=== PATIENT | female | born 1985 | race Caucasian/White ===

== ENCOUNTER 2020-10-28 05:22 | Inpatient (IN) | payer MEDICAID ==
[~2020-10-28 05:22] MED LIST: Sodium Chloride 0.9% 10 ML Syringe FLUSH PRN
[2020-10-28] MEDS: Lactated Ringers 1,000 ML IV SCH ×3 (05:50→08:45)
[2020-10-28] MEDS ORDERED: Citric Acid/Sodium Citrate Solution 30 ML Cup PO ONE (06:45)
[2020-10-28] MEDS ORDERED: Metoclopramide 10 MG/2 ML SDV IVPUSH ONE (06:45)
[2020-10-28] MEDS ORDERED: Phenylephrine 1% 10 MG/ML SDV ONE (07:14)
[2020-10-28] MEDS ORDERED: ceFAZolin 1 GM Vial ONE (07:14)
[2020-10-28] MEDS ORDERED: Morphine PF 10 MG/10 ML SDV ONE (07:14)
[2020-10-28] MEDS ORDERED: Bupivacaine 0.5% 30 ML SDV ONE (07:15)
[2020-10-28] MEDS ORDERED: Oxytocin 10 Units/1 ML SDV ONE (07:17)
[2020-10-28] MEDS ORDERED: Ketorolac 30 MG/ML SDV ONE (07:17)
[2020-10-28] MEDS ORDERED: ceFAZolin 2 GM in Premix Bag 1 BAG IV ONE (07:30)
[2020-10-28] MEDS ORDERED: Oxytocin/Lactated Ringers 10 UNIT/1,000 ML BAG IV SCH (08:00)
[2020-10-28] MEDS ORDERED: Lactated Ringers 1,000 ML ONE (08:06)
[2020-10-28] MEDS ORDERED: diphenhydrAMINE 50 MG/ML SDV IVPUSH PRN ×2 (08:39→11:18)
--- NOTE | 2020-10-28 08:40 | PCM.POSTAN ---
POST ANESTHESIA ASSESSMENT - MENTAL STATUS Mental Status: Alert, Oriented - VITAL SIGNS Vital Signs: Last Vital Signs Temp 36.6 C 10/28/20 05:36 Pulse 79 10/28/20 05:36 Resp 16 10/28/20 05:36 BP 115/66 10/28/20 05:36 Pulse Ox 98 10/28/20 05:36 - RESPIRATORY Respiratory Status: Respiratory Rate WNL, Airway Patent, O2 Saturation Stable, Supplemental Oxygen - CARDIOVASCULAR CV Status: Pulse Rate WNL, Blood Pressure Stable - GASTROINTESTINAL GI Status: No Symptoms - PAIN Pain Score: 0 - POST OP HYDRATION Hydration Status: Adequate & Stable
--- NOTE | 2020-10-28 08:54 | PCM.OPNOTE ---
- General Post-Op/Procedure Note Date of Surgery/Procedure: 10/28/20 Operative Procedure(s): repeat Findings: Viable male, weight 7#15oz, 9/9 APGARS, adhesions Pre Op Diagnosis: uterine window, prior Post-Op Diagnosis: Same Anesthesia Technique: Spinal Primary Surgeon: Tena Robertson Water Softener Installer: Gail Woods Water Softener Installer: Carina Burrows Pathology: none Fluid Replacement, Intraop: 2,600 Output, Urine Amount: 75 EBL in mLs: 900 Drain/Tube Comments:: hernandez Complications: None Condition: Good Free Text/Narrative:: My the patient was taken to the operating room where spinal anesthesia was dosed to surgical levels without difficulty. The patient was prepped and draped in the usual sterile fashion in the dorsal supine position with a leftward tilt. A Pfannenstiel skin incision was made with the scalpel and carried through to the underlying layer of fascia. The fascia was incised in the midline and extended laterally using Colon scissors. Lisa clamps were used to elevate the superior aspect of the fascial incision, which was elevated, and the underlying rectus muscles were dissected off bluntly and using Colon scissors. Attention was then turned to the inferior aspect of the fascial incision, which in similar fashion was grasped with Lisa clamps, elevated, and the underlying rectus muscles were dissected off bluntly and using the colon. The rectus muscles were dissected in the midline. The peritoneum was entered bluntly; this incision was extended superiorly and inferiorly with good visualization of the bladder. The bladder blade was inserted. The vesicouterine peritoneum was identified and entered sharply using Metzenbaum scissors. This incision was extended laterally and the bladder flap was created digitally. The bladder blade was reinserted. The lower uterine segment was incised in a transverse fashion using the scalpel and with digital traction. Clear fluid was noted. The was subsequently delivered by flexing the head to the incision. Body and shoulders followed without difficulty. The cord was clamped and cut. The was subsequently handed to the awaiting armature rewinder whose presence had been requested.. The placenta was delivered spontaneously intact with a three-vessel cord noted. The uterus was exteriorized and cleared of all clots and debris. The uterine incision was repaired in 2 layers using 0 monocryl. Hemostasis was visualized. Hemostasis was visualized bilaterally. The uterus was returned to the abdomen. The uterine incision was reexamined and it was noted to be hemostatic. The pelvis was copiously irrigated. The fascia was closed with 1 PDS suture, and the skin was closed with 3-0 monocryl. Sponge, lap, and instrument counts were correct x2. The patient was stable at the completion of the procedure and was subsequently transferred to the recovery room in stable condition.
[2020-10-28] MEDS ORDERED: ePHEDrine 50 MG/ML SDV IVPUSH PRN (11:18)
[2020-10-28] MEDS ORDERED: Dextrose 5%-Lactated Ringers 1,000 ML IV SCH (11:18)
[2020-10-28] MEDS ORDERED: Naloxone 0.4 MG/ML SDV IVPUSH PRN (11:18)
[2020-10-28] MEDS: Ibuprofen 600 MG Tab PO PRN (17:34)
[2020-10-28] MEDS: Acetaminophen/oxyCODONE 325-5 MG Tab PO PRN (17:35)
[2020-10-29] MEDS: Acetaminophen/oxyCODONE 325-5 MG Tab PO PRN ×5 (00:41→20:14)
[2020-10-29] MEDS: Ibuprofen 600 MG Tab PO PRN ×4 (00:42→20:11)
[2020-10-29] MEDS: Simethicone 80 MG Tab.Chew PO PRN ×4 (04:56→22:01)
[2020-10-29] MEDS ORDERED: Simethicone 80 MG Tab.Chew PO SCH (06:00)
--- NOTE | 2020-10-29 07:54 | PCM48HPAN ---
Post Anesthesia Note - EVALUATION WITHIN 48HRS OF ANESTHETIC Vital Signs in Normal Range: Yes Patient Participated in Evaluation: Yes Respiratory Function Stable: Yes Airway Patent: Yes Cardiovascular Function Stable: Yes Hydration Status Stable: Yes Pain Control Satisfactory: Yes Nausea and Vomiting Control Satisfactory: Yes Mental Status Recovered: Yes Vital Signs: Last Vital Signs Temp 36.7 C 10/29/20 04:41 Pulse 61 10/29/20 04:41 Resp 14 10/29/20 05:00 BP 105/60 10/29/20 04:41 Pulse Ox 99 10/29/20 05:00 - COMMENTS/OBSERVATIONS Free Text/Narrative:: no anesthesia complications noted
--- NOTE | 2020-10-29 07:55 | PCM.PREANE ---
Preanesthetic Assessment - Procedure Proposed Procedure: - Anesthesia/Transfusion/Family Hx Anesthesia History: Prior Anesthesia Without Reaction Family History of Anesthesia Reaction: No Transfusion History: No Prior Transfusion(s) - Review of Systems General: No Symptoms Pulmonary: No Symptoms Cardiovascular: No Symptoms Gastrointestinal: No Symptoms Neurological: No Symptoms Other: Reports: None - Physical Assessment NPO Status Date: 10/27/20 NPO Status Time: 00:00 Vital Signs: Last Vital Signs Temp 36.7 C 10/29/20 04:41 Pulse 61 10/29/20 04:41 Resp 14 10/29/20 05:00 BP 105/60 10/29/20 04:41 Pulse Ox 99 10/29/20 05:00 Height: 1.68 m Weight: 94.064 kg ASA Class: 2 Mental Status: Alert & Oriented x3 Airway Class: Mallampati = 1 Dentition: Reports: Normal Dentition Thyro-Mental Finger Breadths: 3 Mouth Opening Finger Breadths: 3 ROM/Head Extension: Full Lungs: Clear to Auscultation, Normal Respiratory Effort Cardiovascular: Regular Rate, Regular Rhythm - Lab Values: Laboratory Last Values WBC 7.28 K/mm3 (3.98-10.04) 10/28/20 05:49 RBC 4.06 M/mm3 (3.98-5.22) 10/28/20 05:49 Hgb 11.5 gm/dl (11.2-15.7) 10/28/20 05:49 Hct 36.6 % (34.1-44.9) 10/28/20 05:49 MCV 90.1 fl (79.4-94.8) 10/28/20 05:49 MCH 28.3 pg (25.6-32.2) 10/28/20 05:49 MCHC 31.4 g/dl (32.2-35.5) L 10/28/20 05:49 RDW Std Deviation 46.7 fL (36.4-46.3) H 10/28/20 05:49 Plt Count 248 K/mm3 (182-369) 10/28/20 05:49 MPV 10.2 fl (9.4-12.3) 10/28/20 05:49 Neut % (Auto) 63.6 % (34.0-71.1) 10/28/20 05:49 Lymph % (Auto) 25.1 % (19.3-51.7) 10/28/20 05:49 [place] % (Auto) 8.5 % (4.7-12.5) 10/28/20 05:49 Eos % (Auto) 1.9 (0.7-5.8) 10/28/20 05:49 Baso % (Auto) 0.5 % (0.1-1.2) 10/28/20 05:49 Neut # (Auto) 4.62 K/mm3 (1.56-6.13) 10/28/20 05:49 Lymph # (Auto) 1.83 K/mm3 (1.18-3.74) 10/28/20 05:49 [place] # (Auto) 0.62 K/mm3 (0.24-0.36) H 10/28/20 05:49 Eos # (Auto) 0.14 K/mm3 (0.04-0.36) 10/28/20 05:49 Baso # (Auto) 0.04 K/mm3 (0.01-0.08) 10/28/20 05:49 Hepatitis C Antibody Negative (NEGATIVE) 10/28/20 05:49 SARS-CoV-2 RNA (HENRY) Negative (NEGATIVE) 10/28/20 05:49 Blood Type A POSITIVE 10/28/20 05:49 Gel Antibody Screen Negative 10/28/20 05:49 - Allergies Allergies/Adverse Reactions: Allergies Allergy/AdvReac Type Severity Reaction Status Date / Time chloroquine Allergy Rash Verified 10/27/20 14:00 - Anesthesia Plan Pre-Op Medication Ordered: Antacids - Acknowledgements Anesthesia Type Planned: Spinal Pt an Appropriate Candidate for the Planned Anesthesia: Yes Alternatives and Risks of Anesthesia Discussed w Pt/Guardian: Yes Pt/Guardian Understands and Agrees with Anesthesia Plan: Yes PreAnesthesia Questionnaire Gastrointestinal History: Reports: GERD COUNSEL History: Reports: Other OB/BYN History: C/S x2 (2005,2014) Psychiatric History: Reports: Anxiety, Depression - Infectious Disease History Infectious Disease History: Reports: Chicken Pox - Past Surgical History HEENT Surgical History: Reports: Myringotomy w Tube(s), Tonsillectomy Female Surgical History: Reports: Section - SUBSTANCE USE Tobacco Use Status *Q: Former Tobacco User Tobacco Use Within Last Twelve Months: Cigarettes Second Hand Smoke Exposure: No Recreational Drug Use History: No - HOME MEDS Home Medications: Home Meds Fish Oil/[place]-3 Fatty Acids [Fish Oil 1,000 MG] 1,000 mg PO DAILY 10/27/20 [History] Mv-Mn/Iron/FA/Herbal/Digestive [ One Tablet] 1 tab PO DAILY 10/27/20 [History] - CURRENT (IN HOUSE) MEDS Current Meds: Current Medications Diphenhydramine HCl (Diphenhydramine 50 Mg/Ml Sdv) 25 mg IVPUSH Q6H PRN PRN Reason: Itching or Nausea Docusate Sodium (Docusate Sodium 100 Mg Cap) 100 mg PO BID PRN PRN Reason: Constipation Ephedrine Sulfate (Ephedrine 50 Mg/Ml Sdv) 5 mg IVPUSH SEECOMMENT PRN PRN Reason: Other Ibuprofen (Ibuprofen 600 Mg Tab) 600 mg PO Q6H PRN PRN Reason: mild pain or fever Last Admin: 10/29/20 00:42 Dose: 600 mg Documented by: Naloxone HCl (Naloxone 0.4 Mg/Ml Sdv) 0.1 mg IVPUSH SEECOMMENT PRN PRN Reason: Respiratory Depression Oxycodone/Acetaminophen (Acetaminophen/Oxycodone 325-5 Mg Tab) 1 tab PO Q4H PRN PRN Reason: Pain (moderate 4-6) Last Admin: 10/29/20 00:41 Dose: 1 tab Documented by: Oxycodone/Acetaminophen (Acetaminophen/Oxycodone 325-5 Mg Tab) 2 tab PO Q4H PRN PRN Reason: Pain (severe 7-10) Last Admin: 10/29/20 04:55 Dose: 2 tab Documented by: Simethicone (Simethicone 80 Mg Tab.Chew) 80 mg PO Q6HR PRN PRN Reason: Gas Last Admin: 10/29/20 04:56 Dose: 80 mg Documented by: Discontinued Medications Bupivacaine HCl (Bupivacaine 0.5% 30 Ml Sdv) Confirm Administered Dose 30 ml .ROUTE .STK-MED ONE Stop: 10/28/20 07:16 Last Admin: 10/28/20 08:20 Dose: 20 ml Documented by: Cefazolin Sodium (Cefazolin 1 Gm Vial) Confirm Administered Dose 2 gm .ROUTE .STK-MED ONE Stop: 10/28/20 07:15 Citric Acid/Sodium Citrate (Citric Acid/Sodium Citrate Solution 30 Ml Cup) 30 ml PO ONETIME ONE Stop: 10/28/20 06:46 Last Admin: 10/28/20 06:52 Dose: 30 ml Documented by: Diphenhydramine HCl (Diphenhydramine 50 Mg/Ml Sdv) 25 mg IVPUSH Q6H PRN PRN Reason: Itching Cefazolin Sodium/Dextrose 2 gm (/ Premix) 50 mls @ 100 mls/hr IV ONETIME ONE Stop: 10/28/20 07:59 Last Admin: 10/28/20 19:54 Dose: Not Given Documented by: Oxytocin/Lactated Ringer's (Pitocin In Lr 10 Units/1,000 Ml) 10 unit in 1,000 mls @ 100 mls/hr IV ASDIRECTED [facility] Lactated Ringer's (Ringers, Lactated) 1,000 mls @ 125 mls/hr IV ASDIRECTED [facility] Last Admin: 10/28/20 08:45 Dose: 999 mls/hr Documented by: Lactated Ringer's (Ringers, Lactated) Confirm Administered Dose 1,000 mls @ as directed .ROUTE .STK-MED ONE Stop: 10/28/20 08:07 Dextrose/Lactated Ringer's (Dextrose 5%-Lactated Ringers) 1,000 mls @ 125 mls/hr IV ASDIRECTED [facility] Stop: 10/28/20 19:17 Last Admin: 10/28/20 11:42 Dose: 125 mls/hr Documented by: Ketorolac Tromethamine (Ketorolac 30 Mg/Ml Sdv) Confirm Administered Dose 30 mg .ROUTE .STK-MED ONE Stop: 10/28/20 07:18 Metoclopramide HCl (Metoclopramide 10 Mg/2 Ml Sdv) 10 mg IVPUSH ONETIME ONE Stop: 10/28/20 06:46 Last Admin: 10/28/20 06:52 Dose: 10 mg Documented by: Morphine Sulfate (Morphine Pf 10 Mg/10 Ml Sdv) Confirm Administered Dose 10 mg .ROUTE .STK-MED ONE Stop: 10/28/20 07:15 Oxytocin (Oxytocin 10 Units/1 Ml Sdv) Confirm Administered Dose 10 unit .ROUTE .STK-MED ONE Stop: 10/28/20 07:18 Phenylephrine HCl (Phenylephrine 1% 10 Mg/Ml Sdv) Confirm Administered Dose 10 mg .ROUTE .STK-MED ONE Stop: 10/28/20 07:15 Simethicone (Simethicone 80 Mg Tab.Chew) 80 mg PO Q6HR JACQUES Sodium Chloride (Sodium Chloride 0.9% 10 Ml Syringe) 10 ml FLUSH ASDIRECTED PRN PRN Reason: Keep Vein Open
[2020-10-29] MEDS: Docusate Sodium 100 MG Cap PO PRN (07:59)
[2020-10-29] MEDS ORDERED: Hydrocortisone 1% Crm 30 GM Tube TOP ONE (10:52)
--- NOTE | 2020-10-29 10:55 | PCM.PNPP ---
- General Info Date of Service: 10/29/20 Subjective Update: Doing well. Somewhat bothered by urticarial rash on legs that was bothering her pre-. Otherwise no issues. Functional Status: Reports: Pain Controlled - Review of Systems General: Reports: No Symptoms HEENT: Reports: No Symptoms Pulmonary: Reports: No Symptoms Cardiovascular: Reports: No Symptoms Gastrointestinal: Reports: No Symptoms Genitourinary: Reports: No Symptoms Musculoskeletal: Reports: No Symptoms Skin: Reports: No Symptoms Neurological: Reports: No Symptoms Psychiatric: Reports: No Symptoms - General Info Date of Service: 10/29/20 - Patient Data Vital Signs - Most Recent: Last Vital Signs Temp 36.9 C 10/29/20 08:04 Pulse 65 10/29/20 08:04 Resp 14 10/29/20 08:04 BP 96/62 10/29/20 08:04 Pulse Ox 96 10/29/20 08:04 Weight - Most Recent: 94.064 kg I&O - Last 24 Hours: Intake & Output 10/28/20 10/29/20 10/29/20 22:59 06:59 14:59 Intake Total 1000 800 240 Output Total 1075 1000 Balance -75 -200 240 Lab Results - Last 24 Hours: Laboratory Results - last 24 hr 10/29/20 Range/Units 10:23 WBC 10.89 H (3.98-10.04) K/mm3 RBC 3.70 L (3.98-5.22) M/mm3 Hgb 10.4 L (11.2-15.7) gm/dl Hct 33.6 L (34.1-44.9) % MCV 90.8 (79.4-94.8) fl MCH 28.1 (25.6-32.2) pg MCHC 31.0 L (32.2-35.5) g/dl RDW Std Deviation 48.0 H (36.4-46.3) fL Plt Count 239 (182-369) K/mm3 MPV 10.2 (9.4-12.3) fl Neut % (Auto) 77.1 H (34.0-71.1) % Lymph % (Auto) 10.8 L (19.3-51.7) % [place] % (Auto) 8.7 (4.7-12.5) % Eos % (Auto) 2.9 (0.7-5.8) Baso % (Auto) 0.1 (0.1-1.2) % Neut # (Auto) 8.39 H (1.56-6.13) K/mm3 Lymph # (Auto) 1.18 (1.18-3.74) K/mm3 [place] # (Auto) 0.95 H (0.24-0.36) K/mm3 Eos # (Auto) 0.32 (0.04-0.36) K/mm3 Baso # (Auto) 0.01 (0.01-0.08) K/mm3 Med Orders - Current: Current Medications Diphenhydramine HCl (Diphenhydramine 50 Mg/Ml Sdv) 25 mg IVPUSH Q6H PRN PRN Reason: Itching or Nausea Docusate Sodium (Docusate Sodium 100 Mg Cap) 100 mg PO BID PRN PRN Reason: Constipation Last Admin: 10/29/20 07:59 Dose: 100 mg Documented by: Ephedrine Sulfate (Ephedrine 50 Mg/Ml Sdv) 5 mg IVPUSH SEECOMMENT PRN PRN Reason: Other Hydrocortisone (Hydrocortisone 1% Crm 30 Gm Tube) 1 gm TOP ONETIME ONE Stop: 10/29/20 10:53 Ibuprofen (Ibuprofen 600 Mg Tab) 600 mg PO Q6H PRN PRN Reason: mild pain or fever Last Admin: 10/29/20 08:00 Dose: 600 mg Documented by: Naloxone HCl (Naloxone 0.4 Mg/Ml Sdv) 0.1 mg IVPUSH SEECOMMENT PRN PRN Reason: Respiratory Depression Oxycodone/Acetaminophen (Acetaminophen/Oxycodone 325-5 Mg Tab) 1 tab PO Q4H PRN PRN Reason: Pain (moderate 4-6) Last Admin: 10/29/20 00:41 Dose: 1 tab Documented by: Oxycodone/Acetaminophen (Acetaminophen/Oxycodone 325-5 Mg Tab) 2 tab PO Q4H PRN PRN Reason: Pain (severe 7-10) Last Admin: 10/29/20 10:37 Dose: 2 tab Documented by: Simethicone (Simethicone 80 Mg Tab.Chew) 80 mg PO Q6HR PRN PRN Reason: Gas Last Admin: 10/29/20 07:59 Dose: 80 mg Documented by: Discontinued Medications Bupivacaine HCl (Bupivacaine 0.5% 30 Ml Sdv) Confirm Administered Dose 30 ml .ROUTE .STK-MED ONE Stop: 10/28/20 07:16 Last Admin: 10/28/20 08:20 Dose: 20 ml Documented by: Cefazolin Sodium (Cefazolin 1 Gm Vial) Confirm Administered Dose 2 gm .ROUTE .STK-MED ONE Stop: 10/28/20 07:15 Citric Acid/Sodium Citrate (Citric Acid/Sodium Citrate Solution 30 Ml Cup) 30 ml PO ONETIME ONE Stop: 10/28/20 06:46 Last Admin: 10/28/20 06:52 Dose: 30 ml Documented by: Diphenhydramine HCl (Diphenhydramine 50 Mg/Ml Sdv) 25 mg IVPUSH Q6H PRN PRN Reason: Itching Cefazolin Sodium/Dextrose 2 gm (/ Premix) 50 mls @ 100 mls/hr IV ONETIME ONE Stop: 10/28/20 07:59 Last Admin: 10/28/20 19:54 Dose: Not Given Documented by: Oxytocin/Lactated Ringer's (Pitocin In Lr 10 Units/1,000 Ml) 10 unit in 1,000 mls @ 100 mls/hr IV ASDIRECTED [facility] Lactated Ringer's (Ringers, Lactated) 1,000 mls @ 125 mls/hr IV ASDIRECTED [facility] Last Admin: 10/28/20 08:45 Dose: 999 mls/hr Documented by: Lactated Ringer's (Ringers, Lactated) Confirm Administered Dose 1,000 mls @ as directed .ROUTE .[facility] ONE Stop: 10/28/20 08:07 Dextrose/Lactated Ringer's (Dextrose 5%-Lactated Ringers) 1,000 mls @ 125 mls/hr IV ASDIRECTED [facility] Stop: 10/28/20 19:17 Last Admin: 10/28/20 11:42 Dose: 125 mls/hr Documented by: Ketorolac Tromethamine (Ketorolac 30 Mg/Ml Sdv) Confirm Administered Dose 30 mg .ROUTE .STK-MED ONE Stop: 10/28/20 07:18 Metoclopramide HCl (Metoclopramide 10 Mg/2 Ml Sdv) 10 mg IVPUSH ONETIME ONE Stop: 10/28/20 06:46 Last Admin: 10/28/20 06:52 Dose: 10 mg Documented by: Morphine Sulfate (Morphine Pf 10 Mg/10 Ml Sdv) Confirm Administered Dose 10 mg .ROUTE .STK-MED ONE Stop: 10/28/20 07:15 Oxytocin (Oxytocin 10 Units/1 Ml Sdv) Confirm Administered Dose 10 unit .ROUTE .STK-MED ONE Stop: 10/28/20 07:18 Phenylephrine HCl (Phenylephrine 1% 10 Mg/Ml Sdv) Confirm Administered Dose 10 mg .ROUTE .STK-MED ONE Stop: 10/28/20 07:15 Simethicone (Simethicone 80 Mg Tab.Chew) 80 mg PO Q6HR JACQUES Sodium Chloride (Sodium Chloride 0.9% 10 Ml Syringe) 10 ml FLUSH ASDIRECTED PRN PRN Reason: Keep Vein Open - Interaction Infant Disposition, : [place] in Room with Family Support Person: Significant Other - Recovery Exam Fundal Tone: Firm Fundal Level: At Umbilicus Fundal Placement: Midline Lochia Amount: Scant Lochia Color: Rubra/Red Perineum Description: Intact, Minimal Bruising/Swelling Episiotomy/Laceration: None Bladder Status: Voiding Urinary Elimination: Indwelling Catheter - Exam General: Alert, Oriented HEENT: Pupils Equal Neck: Supple Lungs: Clear to Auscultation, Normal Respiratory Effort Cardiovascular: Regular Rate, Regular Rhythm GI/Abdominal Exam: Normal Bowel Sounds, Soft, Non-Tender, No Organomegaly, No Distention, No Abnormal Bruit, No Mass, Pelvis Stable Extremities: Normal Inspection, Normal Range of Motion, Non-Tender, No Pedal Edema, Normal Capillary Refill Wound/Incisions: Healing Well Neurological: No New Focal Deficit Psy/Mental Status: Alert, Normal Affect, Normal Mood - Problem List Review Problem List Initiated/Reviewed/Updated: Yes - My Orders Last 24 Hours: My Active Orders 10/28/20 Lunch Regular Diet [DIET] 10/28/20 11:18 Acetaminophen/oxyCODONE [Percocet 325-5 MG] 1 tab PO Q4H PRN Acetaminophen/oxyCODONE [Percocet 325-5 MG] 2 tab PO Q4H PRN Naloxone [Narcan] 0.1 mg IVPUSH SEECOMMENT PRN diphenhydrAMINE [Benadryl] 25 mg IVPUSH Q6H PRN ePHEDrine [ePHEDrine sulfate] 5 mg IVPUSH SEECOMMENT PRN 10/28/20 11:18 Communication Order [RC] PER UNIT ROUTINE Communication Order [RC] PER UNIT ROUTINE Notify Provider Intake and Out [RC] ASDIRECTED Vital Signs [RC] ,,, Assess Lochia [WOMSER] Per Unit Routine Assess Uterine Involution [WOMSER] Per Unit Routine Medication Administration Instruction [OM.PC] Routine 10/28/20 14:00 Ibuprofen [Motrin] 600 mg PO Q6H PRN 10/29/20 04:46 Simethicone 80 mg PO Q6HR PRN 10/29/20 07:37 Docusate Sodium [Colace] 100 mg PO BID PRN 10/29/20 10:52 Hydrocortisone [Hydrocortisone 1% Crm] 1 gm TOP ONETIME ONE - Assessment Assessment:: POD1 after scheduled RCS No issues. Possibly home tomorrow. rxs sent.
[2020-10-30] MEDS: Acetaminophen/oxyCODONE 325-5 MG Tab PO PRN (03:24)
[2020-10-30] MEDS: Simethicone 80 MG Tab.Chew PO PRN (06:42)
[2020-10-30] MEDS: Ibuprofen 600 MG Tab PO PRN (07:39)
[2020-10-30] MEDS: Docusate Sodium 100 MG Cap PO PRN (07:40)
--- NOTE | 2020-10-30 08:31 | PCM.DCSUM1 ---
<Carina Burrows - Last Filed: 10/30/20 09:12> Discharge Summary - Hospital Course HPI Initial Comments: Patient is POD#2 repeat and is doing well; she is and this is going well. She reports some swelling but has been ambulating, urinate and passing flatus. Her pain is manageable. She reports no concerns. Brief History: Patient is a 35 year old A+ GBS + G3 now [id number] x 3, history of massive hydrops with lack of TAPPER HAND brain activity in first who was scheduled for a repeat at 38-3 weeks gestational age. Patient is now POD#2 repeat and is doing well. Hospital course has been uneventful. Vital signs stable, lochia remained minimal and patient has had good pain control. Diagnosis: Stroke: No - Discharge Data Discharge Date: 10/30/20 Discharge Disposition: Home, Self-Care 01 Condition: Good - Referral to Home Health Primary Care Physician: PCP None - Patient Summary/Data Operative Procedure(s) Performed: repeat Recommended Follow-up Testing/Procedures: [address] Robertson Hospital Course: Uneventful - Patient Instructions Diet: Regular Diet as Tolerated Activity: No Lifting Over 25 Pounds Activity, Other: Pelvic rest Driving: Do Not Drive Showering/Bathing: May Shower Wound/Incision Care: Keep Operative Site/Wound Site Clean and Dry Notify Provider of: Fever, Increased Pain, Swelling and Redness, Drainage, Nausea and/or Vomiting - Discharge Plan *PRESCRIPTION DRUG MONITORING PROGRAM REVIEWED*: No *COPY OF PRESCRIPTION DRUG MONITORING REPORT IN PATIENT TYRONE: No Prescriptions/Med Rec: Acetaminophen/oxyCODONE [Percocet 325-5 MG] 1 - 2 tab PO Q4H PRN #20 tablet PRN Reason: Pain Home Medications: Home Meds Fish Oil/[place]-3 Fatty Acids [Fish Oil 1,000 MG] 1,000 mg PO DAILY 10/27/20 [History] Mv-Mn/Iron/FA/Herbal/Digestive [ One Tablet] 1 tab PO DAILY 10/27/20 [History] Acetaminophen/oxyCODONE [Percocet 325-5 MG] 1 - 2 tab PO Q4H PRN #20 tablet 10/30/20 [Rx] Docusate Sodium [Colace] 100 mg PO BID #60 cap 10/30/20 [Rx] Ibuprofen [Motrin] 600 mg PO Q6H PRN tablet 10/30/20 [Rx] Simethicone 80 mg PO Q6HR PRN tab.chew 10/30/20 [Rx] Patient Handouts: Care After Delivery, Steps to Quit Smoking Referrals: Tena Robertson MD [Physician] - (Follow-up in 2 weeks for routine visit or earlier as needed) - Discharge Summary/Plan Comment DC Time >30 min.: No - Patient Data Vitals - Most Recent: Last Vital Signs Temp 98.4 F 10/30/20 03:21 Pulse 61 10/30/20 03:21 Resp 16 10/30/20 03:21 BP 123/71 10/30/20 03:21 Pulse Ox 95 10/30/20 03:21 Weight - Most Recent: 94.064 kg I&O - Last 24 hours: Intake & Output 10/29/20 10/30/20 10/30/20 22:59 06:59 14:59 Intake Total 100 Balance 100 Lab Results - Last 24 hrs: Laboratory Results - last 24 hr 10/28/20 10/29/20 Range/Units 05:49 10:23 WBC 10.89 H (3.98-10.04) K/mm3 RBC 3.70 L (3.98-5.22) M/mm3 Hgb 10.4 L (11.2-15.7) gm/dl Hct 33.6 L (34.1-44.9) % MCV 90.8 (79.4-94.8) fl MCH 28.1 (25.6-32.2) pg MCHC 31.0 L (32.2-35.5) g/dl RDW Std Deviation 48.0 H (36.4-46.3) fL Plt Count 239 (182-369) K/mm3 MPV 10.2 (9.4-12.3) fl Neut % (Auto) 77.1 H (34.0-71.1) % Lymph % (Auto) 10.8 L (19.3-51.7) % [place] % (Auto) 8.7 (4.7-12.5) % Eos % (Auto) 2.9 (0.7-5.8) Baso % (Auto) 0.1 (0.1-1.2) % Neut # (Auto) 8.39 H (1.56-6.13) K/mm3 Lymph # (Auto) 1.18 (1.18-3.74) K/mm3 [place] # (Auto) 0.95 H (0.24-0.36) K/mm3 Eos # (Auto) 0.32 (0.04-0.36) K/mm3 Baso # (Auto) 0.01 (0.01-0.08) K/mm3 RPR Non-reactive (NONREACTIVE) Med Orders - Current: Current Medications Diphenhydramine HCl (Diphenhydramine 50 Mg/Ml Sdv) 25 mg IVPUSH Q6H PRN PRN Reason: Itching or Nausea Docusate Sodium (Docusate Sodium 100 Mg Cap) 100 mg PO BID PRN PRN Reason: Constipation Last Admin: 10/30/20 07:40 Dose: 100 mg Documented by: Ephedrine Sulfate (Ephedrine 50 Mg/Ml Sdv) 5 mg IVPUSH SEECOMMENT PRN PRN Reason: Other Ibuprofen (Ibuprofen 600 Mg Tab) 600 mg PO Q6H PRN PRN Reason: mild pain or fever Last Admin: 10/30/20 07:39 Dose: 600 mg Documented by: Naloxone HCl (Naloxone 0.4 Mg/Ml Sdv) 0.1 mg IVPUSH SEECOMMENT PRN PRN Reason: Respiratory Depression Oxycodone/Acetaminophen (Acetaminophen/Oxycodone 325-5 Mg Tab) 1 tab PO Q4H PRN PRN Reason: Pain (moderate 4-6) Last Admin: 10/29/20 20:14 Dose: 1 tab Documented by: Oxycodone/Acetaminophen (Acetaminophen/Oxycodone 325-5 Mg Tab) 2 tab PO Q4H PRN PRN Reason: Pain (severe 7-10) Last Admin: 10/30/20 03:24 Dose: 2 tab Documented by: Simethicone (Simethicone 80 Mg Tab.Chew) 80 mg PO Q6HR PRN PRN Reason: Gas Last Admin: 10/30/20 06:42 Dose: 80 mg Documented by: Discontinued Medications Bupivacaine HCl (Bupivacaine 0.5% 30 Ml Sdv) Confirm Administered Dose 30 ml .ROUTE .STK-MED ONE Stop: 10/28/20 07:16 Last Admin: 10/28/20 08:20 Dose: 20 ml Documented by: Cefazolin Sodium (Cefazolin 1 Gm Vial) Confirm Administered Dose 2 gm .ROUTE .STK-MED ONE Stop: 10/28/20 07:15 Citric Acid/Sodium Citrate (Citric Acid/Sodium Citrate Solution 30 Ml Cup) 30 ml PO ONETIME ONE Stop: 10/28/20 06:46 Last Admin: 10/28/20 06:52 Dose: 30 ml Documented by: Diphenhydramine HCl (Diphenhydramine 50 Mg/Ml Sdv) 25 mg IVPUSH Q6H PRN PRN Reason: Itching Hydrocortisone (Hydrocortisone 1% Crm 30 Gm Tube) 1 gm TOP ONETIME ONE Stop: 10/29/20 10:53 Last Admin: 10/29/20 11:43 Dose: 1 tube Documented by: Cefazolin Sodium/Dextrose 2 gm (/ Premix) 50 mls @ 100 mls/hr IV ONETIME ONE Stop: 10/28/20 07:59 Last Admin: 10/28/20 19:54 Dose: Not Given Documented by: Oxytocin/Lactated Ringer's (Pitocin In Lr 10 Units/1,000 Ml) 10 unit in 1,000 mls @ 100 mls/hr IV ASDIRECTED [facility] Lactated Ringer's (Ringers, Lactated) 1,000 mls @ 125 mls/hr IV ASDIRECTED [facility] Last Admin: 10/28/20 08:45 Dose: 999 mls/hr Documented by: Lactated Ringer's (Ringers, Lactated) Confirm Administered Dose 1,000 mls @ as directed .ROUTE .STK-MED ONE Stop: 10/28/20 08:07 Dextrose/Lactated Ringer's (Dextrose 5%-Lactated Ringers) 1,000 mls @ 125 mls/hr IV ASDIRECTED [facility] Stop: 10/28/20 19:17 Last Admin: 10/28/20 11:42 Dose: 125 mls/hr Documented by: Ketorolac Tromethamine (Ketorolac 30 Mg/Ml Sdv) Confirm Administered Dose 30 mg .ROUTE .STK-MED ONE Stop: 10/28/20 07:18 Metoclopramide HCl (Metoclopramide 10 Mg/2 Ml Sdv) 10 mg IVPUSH ONETIME ONE Stop: 10/28/20 06:46 Last Admin: 10/28/20 06:52 Dose: 10 mg Documented by: Morphine Sulfate (Morphine Pf 10 Mg/10 Ml Sdv) Confirm Administered Dose 10 mg .ROUTE .STK-MED ONE Stop: 10/28/20 07:15 Oxytocin (Oxytocin 10 Units/1 Ml Sdv) Confirm Administered Dose 10 unit .ROUTE .STK-MED ONE Stop: 10/28/20 07:18 Phenylephrine HCl (Phenylephrine 1% 10 Mg/Ml Sdv) Confirm Administered Dose 10 mg .ROUTE .STK-MED ONE Stop: 10/28/20 07:15 Simethicone (Simethicone 80 Mg Tab.Chew) 80 mg PO Q6HR JACQUES Sodium Chloride (Sodium Chloride 0.9% 10 Ml Syringe) 10 ml FLUSH ASDIRECTED PRN PRN Reason: Keep Vein Open <Jarek Lopez - Last Filed: 10/30/20 11:02> Discharge Summary - Hospital Course HPI Initial Comments: I have seen and evaluated the patient with the medical student and agree with the assessment and plan. Patient is POD #2 following repeat section and is meeting all post operative milestones. Patient is to be discharged home this morning on POD #2. Patient has A+ blood type and does not require RhoGam. Jarek Lopez MD 11:01 AM 10/30/2020 - Referral to Home Health Primary Care Physician: PCP None - Discharge Diagnosis/Problem(s) (1) 38 weeks gestation of SNOMED Code(s): 08077940 ICD Code: Z3A.38 - 38 WEEKS GESTATION OF Status: Acute Current Visit: Yes (2) delivery delivered SNOMED Code(s): 324575603 ICD Code: O82 - ENCOUNTER FOR DELIVERY WITHOUT INDICATION Status: Acute Current Visit: Yes (3) Anxiety SNOMED Code(s): 23953443 ICD Code: F41.9 - ANXIETY DISORDER, UNSPECIFIED Status: Acute Current Visit: Yes (4) Depression SNOMED Code(s): 59186375 ICD Code: F32.9 - MAJOR DEPRESSIVE DISORDER, SINGLE EPISODE, UNSPECIFIED Status: Acute Current Visit: Yes - Discharge Summary/Plan Comment DC Time >30 min.: No - Patient Data Vitals - Most Recent: Last Vital Signs Temp 36.9 C 10/30/20 07:37 Pulse 61 10/30/20 07:37 Resp 15 10/30/20 07:37 BP 99/66 10/30/20 07:37 Pulse Ox 99 10/30/20 07:37 I&O - Last 24 hours: Intake & Output 10/29/20 10/30/20 10/30/20 22:59 06:59 14:59 Intake Total 100 Balance 100 Lab Results - Last 24 hrs: Laboratory Results - last 24 hr 10/28/20 Range/Units 05:49 RPR Non-reactive (NONREACTIVE) Med Orders - Current: Current Medications Diphenhydramine HCl (Diphenhydramine 50 Mg/Ml Sdv) 25 mg IVPUSH Q6H PRN PRN Reason: Itching or Nausea Docusate Sodium (Docusate Sodium 100 Mg Cap) 100 mg PO BID PRN PRN Reason: Constipation Last Admin: 10/30/20 07:40 Dose: 100 mg Documented by: Ephedrine Sulfate (Ephedrine 50 Mg/Ml Sdv) 5 mg IVPUSH SEECOMMENT PRN PRN Reason: Other Ibuprofen (Ibuprofen 600 Mg Tab) 600 mg PO Q6H PRN PRN Reason: mild pain or fever Last Admin: 10/30/20 07:39 Dose: 600 mg Documented by: Naloxone HCl (Naloxone 0.4 Mg/Ml Sdv) 0.1 mg IVPUSH SEECOMMENT PRN PRN Reason: Respiratory Depression Oxycodone/Acetaminophen (Acetaminophen/Oxycodone 325-5 Mg Tab) 1 tab PO Q4H PRN PRN Reason: Pain (moderate 4-6) Last Admin: 10/29/20 20:14 Dose: 1 tab Documented by: Oxycodone/Acetaminophen (Acetaminophen/Oxycodone 325-5 Mg Tab) 2 tab PO Q4H PRN PRN Reason: Pain (severe 7-10) Last Admin: 10/30/20 03:24 Dose: 2 tab Documented by: Simethicone (Simethicone 80 Mg Tab.Chew) 80 mg PO Q6HR PRN PRN Reason: Gas Last Admin: 10/30/20 06:42 Dose: 80 mg Documented by: Discontinued Medications Bupivacaine HCl (Bupivacaine 0.5% 30 Ml Sdv) Confirm Administered Dose 30 ml .ROUTE .STK-MED ONE Stop: 10/28/20 07:16 Last Admin: 10/28/20 08:20 Dose: 20 ml Documented by: Cefazolin Sodium (Cefazolin 1 Gm Vial) Confirm Administered Dose 2 gm .ROUTE .[facility] ONE Stop: 10/28/20 07:15 Citric Acid/Sodium Citrate (Citric Acid/Sodium Citrate Solution 30 Ml Cup) 30 ml PO ONETIME ONE Stop: 10/28/20 06:46 Last Admin: 10/28/20 06:52 Dose: 30 ml Documented by: Diphenhydramine HCl (Diphenhydramine 50 Mg/Ml Sdv) 25 mg IVPUSH Q6H PRN PRN Reason: Itching Hydrocortisone (Hydrocortisone 1% Crm 30 Gm Tube) 1 gm TOP ONETIME ONE Stop: 10/29/20 10:53 Last Admin: 10/29/20 11:43 Dose: 1 tube Documented by: Cefazolin Sodium/Dextrose 2 gm (/ Premix) 50 mls @ 100 mls/hr IV ONETIME ONE Stop: 10/28/20 07:59 Last Admin: 10/28/20 19:54 Dose: Not Given Documented by: Oxytocin/Lactated Ringer's (Pitocin In Lr 10 Units/1,000 Ml) 10 unit in 1,000 mls @ 100 mls/hr IV ASDIRECTED [facility] Lactated Ringer's (Ringers, Lactated) 1,000 mls @ 125 mls/hr IV ASDIRECTED [facility] Last Admin: 10/28/20 08:45 Dose: 999 mls/hr Documented by: Lactated Ringer's (Ringers, Lactated) Confirm Administered Dose 1,000 mls @ as directed .ROUTE .[facility] ONE Stop: 10/28/20 08:07 Dextrose/Lactated Ringer's (Dextrose 5%-Lactated Ringers) 1,000 mls @ 125 mls/hr IV ASDIRECTED [facility] Stop: 10/28/20 19:17 Last Admin: 10/28/20 11:42 Dose: 125 mls/hr Documented by: Ketorolac Tromethamine (Ketorolac 30 Mg/Ml Sdv) Confirm Administered Dose 30 mg .ROUTE .STK-MED ONE Stop: 10/28/20 07:18 Metoclopramide HCl (Metoclopramide 10 Mg/2 Ml Sdv) 10 mg IVPUSH ONETIME ONE Stop: 10/28/20 06:46 Last Admin: 10/28/20 06:52 Dose: 10 mg Documented by: Morphine Sulfate (Morphine Pf 10 Mg/10 Ml Sdv) Confirm Administered Dose 10 mg .ROUTE .STK-MED ONE Stop: 10/28/20 07:15 Oxytocin (Oxytocin 10 Units/1 Ml Sdv) Confirm Administered Dose 10 unit .ROUTE .STK-MED ONE Stop: 10/28/20 07:18 Phenylephrine HCl (Phenylephrine 1% 10 Mg/Ml Sdv) Confirm Administered Dose 10 mg .ROUTE .STK-MED ONE Stop: 10/28/20 07:15 Simethicone (Simethicone 80 Mg Tab.Chew) 80 mg PO Q6HR JACQUES Sodium Chloride (Sodium Chloride 0.9% 10 Ml Syringe) 10 ml FLUSH ASDIRECTED PRN PRN Reason: Keep Vein Open
== END 2020-10-30 11:50 | disposition home or self-care (01) | DRG 788 ==
LOC: JD.OB 05:22
PROVIDERS: ADMIT Obstetrics & Gynecology; ATTEND Obstetrics & Gynecology
PROC: 10D00Z1 Extraction of Products of Conception, Low, Open Approach (ICD-10-PCS; principal; 2020-10-28)
DX: O34.211 Maternal care for low transverse scar from previous cesarean delivery (principal); Z37.0 Single live birth; Z3A.38 38 weeks gestation of pregnancy; O99.344 Other mental disorders complicating childbirth; F41.9 Anxiety disorder, unspecified; F32.9 Major depressive disorder, single episode, unspecified; Z88.8 Allergy status to other drugs, medicaments and biological substances; Z20.822 Contact with and (suspected) exposure to COVID-19
CPT/HCPCS: 01961; 36415; 59025; 85025; 86592; 86803; 86850; 86900; 86901; A9270-GY; J0690; J1885; J2270; J2370; J2590; J2765; J3490; J7120; J7121; U0002

== ENCOUNTER 2023-06-08 07:00 | Inpatient (IN) | payer SELFPAY ==
[2023-06-08] MEDS ORDERED: ceFAZolin 2 GM in Sodium Chloride 0.9% 50 ML IV ONE (07:30)
[2023-06-08] MEDS ORDERED: Metoclopramide 10 MG/2 ML SDV IVPUSH ONE (07:30)
[2023-06-08] MEDS ORDERED: Citric Acid/Sodium Citrate Solution 30 ML Cup PO ONE (07:30)
[2023-06-08] MEDS ORDERED: Oxytocin/Lactated Ringers 30 UNIT/500 ML BAG IV SCH (07:45)
[2023-06-08 08:06] LABS: BASOPHILS ABSOLUTE AUTO 0.1 K/mm3 (0.0-0.2); BASOPHILS PERCENT AUTO 0.8 % (0.0-1.0); EOSINOPHILS ABSOLUTE AUTO 0.1 K/mm3 (0.0-0.4); EOSINOPHILS PERCENT AUTO 1.7 % (0.0-6.0); HEMATOCRIT 35.3 % (37.0-47.0); HEMOGLOBIN 11.9 gm/dl (12.0-16.0); IMMATURE GRAN ABSOLUTE AUTO 0.07 K/mm3 (0.00-0.05); LYMPHOCYTES ABSOLUTE AUTO 1.4 K/mm3 (1.0-4.8); LYMPHOCYTES PERCENT AUTO 19.4 % (24.0-44.0); MEAN CORPUSCULAR HGB CONC 33.7 g/dl (32.0-36.0); MEAN CORPUSCULAR VOLUME 91.9 fl (83.0-99.0); MEAN PLATELET VOLUME 10.4 fl (9.4-12.3); MONOCYTES ABSOLUTE AUTO 0.6 K/mm3 (0.0-0.8); MONOCYTES PERCENT AUTO 8.2 % (0.0-8.0); NEUTROPHILS PERCENT AUTO 68.9 % (41.0-71.0); PLATELET COUNT,PLT 188 K/mm3 (150-400); RED BLOOD CELL COUNT 3.84 M/mm3 (4.10-5.30); WHITE BLOOD CELL COUNT,WBC 7.21 K/mm3 (3.9-11.3)
[2023-06-08] MEDS ORDERED: fentaNYL 100 MCG/2 ML SDV IVPUSH PRN (08:19)
[2023-06-08] MEDS ORDERED: Ondansetron 4 MG/2 ML SDV IVPUSH PRN (08:19)
[2023-06-08] MEDS ORDERED: diphenhydrAMINE 50 MG/ML SDV IVPUSH PRN ×2 (08:19→12:48)
[2023-06-08] MEDS: Lactated Ringers 1,000 ML IV SCH ×2 (08:20→09:24)
[2023-06-08] MEDS ORDERED: Oxytocin 10 Units/1 ML SDV ONE ×2 (09:03→10:06)
[2023-06-08] MEDS ORDERED: ceFAZolin 2 GM Vial ONE (09:03)
[2023-06-08] MEDS ORDERED: Morphine PF 10 MG/10 ML SDV ONE (09:04)
[2023-06-08] MEDS ORDERED: fentaNYL 100 MCG/2 ML SDV ONE (09:04)
[2023-06-08] MEDS ORDERED: Bupivacaine 0.5% 30 ML SDV ONE (09:06)
[2023-06-08] MEDS ORDERED: EPINEPHrine 1 MG/ML SDV ONE (09:06)
[2023-06-08] MEDS ORDERED: Phenylephrine 1% 10 MG/ML SDV ONE (09:45)
[2023-06-08] MEDS ORDERED: Ondansetron 4 MG/2 ML SDV ONE (09:51)
[2023-06-08] MEDS ORDERED: Lactated Ringers 1,000 ML ONE (10:06)
[2023-06-08] MEDS ORDERED: Ketorolac 30 MG/ML SDV ONE (10:17)
[2023-06-08] MEDS ORDERED: Sodium Chloride 0.9% 10 ML Syringe FLUSH PRN (12:33)
[2023-06-08] MEDS ORDERED: Iopamidol 612 MG/ML 100 ML Bottle IVPUSH ONE (12:33)
[2023-06-08] MEDS ORDERED: Sodium Chloride 0.9% 45 ML IV SCH (12:45)
[2023-06-08] MEDS ORDERED: ePHEDrine 50 MG/ML SDV IVPUSH PRN (12:48)
[2023-06-08] MEDS ORDERED: Acetaminophen/oxyCODONE 325-5 MG Tab PO PRN ×2 (12:48)
[2023-06-08] MEDS ORDERED: Acetaminophen/HYDROcodone 325-5 MG Tab PO PRN ×2 (12:48)
[2023-06-08] MEDS ORDERED: Naloxone 0.4 MG/ML SDV IVPUSH PRN (12:48)
[2023-06-08] MEDS ORDERED: Dextrose 5%-Lactated Ringers 1,000 ML IV SCH (12:48)
[2023-06-08] MEDS ORDERED: Lactated Ringers 1,000 ML IV ONE (14:04)
[2023-06-08 14:10] LABS: BASOPHILS PERCENT AUTO 0.3 % (0.0-1.0); EOSINOPHILS ABSOLUTE AUTO 0.1 K/mm3 (0.0-0.4); EOSINOPHILS PERCENT AUTO 0.8 % (0.0-6.0); HEMATOCRIT 30.5 % (37.0-47.0); IMMATURE GRAN ABSOLUTE AUTO 0.08 K/mm3 (0.00-0.05); IMMATURE GRAN PERCENT AUTO 0.6 % (0.0-0.4); LYMPHOCYTES ABSOLUTE AUTO 1.6 K/mm3 (1.0-4.8); LYMPHOCYTES PERCENT AUTO 11.1 % (24.0-44.0); MEAN CORPUSCULAR HEMOGLOBIN 30.6 pg (28.0-32.0); MEAN CORPUSCULAR HGB CONC 33.1 g/dl (32.0-36.0); MEAN CORPUSCULAR VOLUME 92.4 fl (83.0-99.0); MEAN PLATELET VOLUME 10.9 fl (9.4-12.3); MONOCYTES ABSOLUTE AUTO 0.6 K/mm3 (0.0-0.8); NEUTROPHILS ABSOLUTE AUTO 12.1 K/mm3 (1.8-7.7); NEUTROPHILS PERCENT AUTO 83.2 % (41.0-71.0); PLATELET COUNT,PLT 191 K/mm3 (150-400)
[2023-06-08] MEDS ORDERED: Sodium Chloride 0.9% 250 ML IV SCH (14:15)
[2023-06-08 14:21] LABS: HEMOGLOBIN 10.1 gm/dl (12.0-16.0)
[2023-06-08 14:31] LABS: A/G RATIO 0.6 (1-2); ANION GAP 9.7 (5-15); BILIRUBIN TOTAL 0.3 mg/dL (0.2-1.0); BUN/CREATININE RATIO 7.1 (14-18); CALCIUM 8.2 mg/dL (8.5-10.1); CREATININE 0.7 mg/dL (0.55-1.02); EST CRCL DRUG DOSING (CG) 100.01 mL/min; POTASSIUM,K 3.7 mEq/L (3.5-5.1); PROTEIN TOTAL,TP 5.3 g/dl (6.4-8.2)
[2023-06-08] MEDS ORDERED: Sodium Chloride 0.9% 250 ML ONE (15:25)
[2023-06-08] MEDS ORDERED: Ketorolac 30 MG/ML SDV IVPUSH SCH (17:00)
[2023-06-09] MEDS ORDERED: Ibuprofen 600 MG Tab PO PRN (11:00)
== END 2023-06-08 15:32 | DRG 788 ==
LOC: JD.OB 07:00
PROVIDERS: ADMIT Obstetrics & Gynecology; ATTEND Obstetrics & Gynecology
PROC: 30233N1 Transfusion of Nonautologous Red Blood Cells into Peripheral Vein, Percutaneous Approach (ICD-10-PCS; 2023-06-08)
PROC: 10D00Z1 Extraction of Products of Conception, Low, Open Approach (ICD-10-PCS; principal; 2023-06-08 10:00)
DX: O34.211 Maternal care for low transverse scar from previous cesarean delivery (principal); I95.9 Hypotension, unspecified; O99.893 Other specified diseases and conditions complicating puerperium; Z37.0 Single live birth; Z3A.39 39 weeks gestation of pregnancy
CPT/HCPCS: 36415; 36430; 59025; 74178; 74178-26; 80053; 85025; 86592; 86850; 86900; 86901; 86922; 94762; A9270-GY; J0171; J0690; J1885; J2274; J2371; J2405; J2590; J2765; J3010; J3490; J7120; J7121; P9016; Q9967